=== PATIENT | female | born 1980 | race Caucasian/White ===

== ENCOUNTER 2017-08-25 16:38 | Emergency (ER) | payer BC ==
[2017-08-25 17:11] VITALS: BP 136/77
--- NOTE | 2017-08-25 17:38 | UC ---
Throat Pain/Nasal Alex HPI - HPI Summary HPI Summary: 6 weeks of sinus pain and congestion -rx with ceftin without relief a few weeks ago--pain in left maxillary sinus - History of Current Complaint Chief Complaint: UCRespiratory Stated Complaint: CONGESTION Time Seen by Provider: 08/25/17 17:33 Hx Obtained From: Patient ?: No Onset/Duration: Gradual Onset, Lasting Weeks - 6, Still Present Severity: Moderate Pain Intensity: 6 Pain Scale Used: 0-10 Numeric Cough: None Associated Signs & Symptoms: Positive: Sinus Discomfort, Nasal Discharge - Allergies/Home Medications Allergies/Adverse Reactions: Allergies Allergy/AdvReac Type Severity Reaction Status Date / Time theophylline Allergy See Comment Verified 08/25/17 17:12 Home Medications: Home Medications Albuterol HFA INHALER* [Ventolin HFA Inhaler*] 2 puff INH Q4H PRN 08/25/17 [ History Confirmed 08/25/17] Etanercept [Enbrel] 50 mg SQ WEEKLY 08/25/17 [History Confirmed 08/25/17] Levothyroxine TAB* [Synthroid 100 MCG TAB*] 200 mcg PO DAILY 08/25/17 [History Confirmed 08/25/17] Methotrexate TAB* 15 mg PO WEEKLY 08/25/17 [History Confirmed 08/25/17] PMH/Surg Hx/FS Hx/Imm Hx Previously Healthy: No - RA Endocrine History: Hypothyroidism - Surgical History Surgical History: None - Family History Known Family History: Positive: None - Social History Occupation: Employed Full-time Lives: With Family Alcohol Use: None Substance Use Type: None Smoking Status (MU): Former Smoker Review of Systems Constitutional: Negative Skin: Negative Eyes: Negative ENT: Sinus Congestion, Sinus Pain/Tenderness Respiratory: Negative Cardiovascular: Negative Gastrointestinal: Negative Genitourinary: Negative Motor: Negative Neurovascular: Negative Musculoskeletal: Negative Neurological: Headache Psychological: Negative Is Patient Immunocompromised?: No All Other Systems Reviewed And Are Negative: Yes Physical Exam Triage Information Reviewed: Yes Appearance: Well-Appearing, No Pain Distress, Well-Nourished Vital Signs: Initial Vital Signs Temp 98.9 F 08/25/17 17:07 Pulse 104 08/25/17 17:07 Resp 14 08/25/17 17:07 BP 136/77 08/25/17 17:07 Pulse Ox 100 08/25/17 17:07 Vital Signs Reviewed: Yes Eye Exam: Normal Eyes: Positive: Conjunctiva Clear ENT Exam: Normal ENT: Positive: Normal ENT inspection, Hearing grossly normal, Pharynx normal, Nasal congestion, TMs normal, Sinus tenderness, Uvula midline. Negative: Nasal drainage, Tonsillar swelling, Tonsillar exudate, Trismus, Muffled voice, Hoarse voice, Dental tenderness Dental Exam: Normal Neck exam: Normal Neck: Positive: Supple, Nontender, No Lymphadenopathy Respiratory Exam: Normal Respiratory: Positive: Chest non-tender, Lungs clear, Normal breath sounds, No respiratory distress, No accessory muscle use Cardiovascular Exam: Normal Cardiovascular: Positive: RRR, No Murmur, Pulses Normal, Brisk Capillary Refill Musculoskeletal Exam: Normal Musculoskeletal: Positive: Strength Intact, ROM Intact, No Edema Neurological Exam: Normal Neurological: Positive: Alert, Muscle Tone Normal Psychological Exam: Normal Skin Exam: Normal Throat Pain/Nasal Course/Dx - Course Assessment/Plan: cefdinir, flonase, mucinex d tylenol/ibuprofen for pain follow with pcp prn - Differential Dx/Diagnosis Provider Diagnoses: Acute rhinosinusitis Discharge - Discharge Plan Condition: Stable Disposition: HOME Prescriptions: Cefdinir [Cefdinir 300 MG CAP] 300 mg PO BID #20 cap Fluticasone NASAL SPRAY 50MCG* [Flonase NASAL SPRAY 50MCG*] 2 spray BOTH NARES DAILY #1 btl Patient Education Materials: Sinusitis (ED), How to Use Nasal [place] (ED) Referrals: [facility] [[place]] - 2 Weeks
== END 2017-08-25 17:45 | disposition home or self-care (01) ==
LOC: UCCORT 16:38
DX: Z88.8 Allergy status to other drugs, medicaments and biological substances (principal); Z87.891 Personal history of nicotine dependence; J01.90 Acute sinusitis, unspecified
CPT/HCPCS: 99202; G0463

== ENCOUNTER 2017-12-31 16:33 | Emergency (ER) | payer BC ==
[2017-12-31 16:55] VITALS: BP 113/75
--- NOTE | 2017-12-31 17:17 | UC ---
ONRRIS General HPI - HPI Summary HPI Summary: Patient is new to [facility], is scheduled to see her PCP in 3 weeks. She lost her synthroid and albuterol in her luggage while traveling and needs a replacement for them. she states she has been in synthroid 200 mcg daily and her last tsh was around 2. she denies any symptoms of hyper or hypothyroidism at this time. - History of Current Complaint Chief Complaint: UCMedRefill Stated Complaint: MED REFILLS Time Seen by Provider: 12/31/17 16:57 Hx Obtained From: Patient Hx Last Menstrual Period: iud Onset/Duration: Sudden Onset Current Severity: None Pain Intensity: 0 - Allergy/Home Medications Allergies/Adverse Reactions: Allergies Allergy/AdvReac Type Severity Reaction Status Date / Time theophylline Allergy See Comment Verified 12/31/17 16:47 Home Medications: Home Medications Levothyroxine TAB* [Synthroid TAB*] 175 mcg PO DAILY 12/31/17 [History Confirmed 12/31/17] PMH/Surg Hx/FS Hx/Imm Hx Previously Healthy: Yes Endocrine History: Thyroid Disease Respiratory History: Asthma - Surgical History Surgical History: None - Family History Known Family History: Positive: Hypertension, Other - RA - Social History Alcohol Use: None Substance Use Type: None Smoking Status (MU): Former Smoker When Did the Patient Quit Smoking/Using Tobacco: 02/14/17 Review of Systems Constitutional: Negative Skin: Negative Eyes: Negative ENT: Negative Respiratory: Negative Cardiovascular: Negative Gastrointestinal: Negative Genitourinary: Negative Motor: Negative Neurovascular: Negative Musculoskeletal: Negative Neurological: Negative Psychological: Negative Is Patient Immunocompromised?: No All Other Systems Reviewed And Are Negative: Yes Physical Exam Triage Information Reviewed: Yes Appearance: Well-Appearing, No Pain Distress, Well-Nourished Vital Signs: Initial Vital Signs Temp 98.7 F 12/31/17 16:50 Pulse 92 12/31/17 16:50 Resp 22 12/31/17 16:50 BP 113/75 12/31/17 16:50 Pulse Ox 100 12/31/17 16:50 Vital Signs Reviewed: Yes Eye Exam: Normal ENT Exam: Normal Dental Exam: Normal Neck exam: Normal Respiratory Exam: Normal Respiratory: Positive: Chest non-tender, Lungs clear, Normal breath sounds Cardiovascular Exam: Normal Cardiovascular: Positive: RRR, No Murmur, Pulses Normal Musculoskeletal Exam: Normal Neurological Exam: Normal Psychological Exam: Normal Skin Exam: Normal Course/Dx - Course Course Of Treatment: hx obtained, exam performed ,meds reviewed, refills for synthroid and albuterol given. TSH was obtained due to high level of medication and her lack of follow up over the past few months. - Differential Dx - Multi-Symptom Provider Diagnoses: hypothyroidism. asthma Discharge - Sign-Out/Discharge Documenting (check all that apply): Discharge/Admit/Transfer - Discharge Plan Condition: Stable Disposition: HOME Prescriptions: Albuterol HFA INHALER* [Ventolin HFA Inhaler*] 2 puff INH Q4H PRN #1 mdi PRN Reason: Sob/Wheezing Levothyroxine Sodium [Synthroid] 200 mcg PO DAILY #28 tab Patient Education Materials: Thyroid Supplement (By mouth) Referrals: No Primary Care Phys,NOPCP [Primary Care Provider] - Additional Instructions: 1. TSH was drawn today should be available tomorrow evening for report. you are welcome to call tomorrow evening or tuesday for result 2. Take the medication as prescribed. - Billing Disposition and Condition Condition: STABLE Disposition: Home
== END 2017-12-31 17:32 | disposition home or self-care (01) ==
LOC: UCCORT 16:33
DX: E03.9 Hypothyroidism, unspecified (principal); J45.909 Unspecified asthma, uncomplicated; Z88.8 Allergy status to other drugs, medicaments and biological substances; E07.9 Disorder of thyroid, unspecified; Z87.891 Personal history of nicotine dependence
CPT/HCPCS: 36415; 84443; 99212; G0463